=== PATIENT | male | born 1980 | race Caucasian/White ===

== ENCOUNTER 2017-11-02 00:47 | Inpatient (IN) | payer MEDICAID ==
[~2017-11-02] VITALS: Ht 180.3 cm; Wt 64.9 kg
[2017-11-02 02:20] LABS: BASOPHILS % (AUTO) 0.8 % (0.0-2.0); HEMATOCRIT 41.8 % (41-53); HEMOGLOBIN 14.7 g/dL (13.5-17.5); LYMPHOCYTES % (AUTO) 27.4 % (22.0-44.0); MEAN CORPUSCULAR HEMOGLOBIN 32.1 pg (26.0-34.0); MEAN CORPUSCULAR HGB CONC 35.1 G/dL (31.0-37.0); MEAN CORPUSCULAR VOLUME 92 fL (80-100); MONOCYTES # (AUTO) 0.6 K/uL (0.1-1.0); MONOCYTES % (AUTO) 8.6 % (2.0-9.0); NEUTROPHILS # (AUTO) 4.4 K/uL (1.8-7.7); NEUTROPHILS % (AUTO) 61.2 % (40.0-70.0); PLATELET COUNT (AUTO) 268 K/uL (150-450); RED BLOOD CELL COUNT(AUTO) 4.56 MIL/uL (4.50-5.90); RED CELL DISTRIBUTION WIDTH 13.1 % (11.5-14.5)
[2017-11-02 02:21] LABS: ANION GAP 6 mmol/L (8-16); CALCIUM, TOTAL 9.1 mg/dL (8.8-10.5); CARBON DIOXIDE 30 mmol/L (22-29); CHLORIDE 103 mmol/L (98-107); CREATININE 1.04 mg/dL (0.60-1.30); GLOMERULAR FILTR. RATE CALC > 60 mL/min (>60); GLUCOSE,RANDOM 147 mg/dL (70-110); POTASSIUM 3.6 mmol/L (3.5-5.1); SODIUM SERUM 139 mmol/L (136-145); UREA NITROGEN, BLOOD 14 mg/dL (7-18)
[2017-11-02 02:26] LABS: ALANINE AMINOTRANSFERASE 43 U/L (12-78); ALBUMIN 3.8 g/dL (3.4-5.0); ALKALINE PHOSPHATASE 116 U/L (46-116); ASPARTATE AMINOTRANSFERASE 35 U/L (15-37); BILIRUBIN,TOTAL 0.5 mg/dL (0.1-1.0); TOTAL PROTEIN, SERUM 6.9 g/dL (6.4-8.2)
[2017-11-02 03:28] LABS: AMPHET/METH SCREEN,URINE POSITIVE (NEGATIVE); BARBITURATE SCREEN, URINE NEGATIVE (NEGATIVE); BENZODIAZEPINES SCREEN,URINE NEGATIVE (NEGATIVE); CANNABINOID SCREEN,URINE POSITIVE (NEGATIVE); COCAINE SCREEN,URINE NEGATIVE (NEGATIVE); METHADONE SCREEN, URINE NEGATIVE (NEGATIVE); OPIATE SCREEN,URINE NEGATIVE (NEGATIVE)
[2017-11-02 03:29] LABS: PHENCYCLIDINE SCREEN,URINE NEGATIVE (NEGATIVE)
[2017-11-02] MEDS ORDERED: ZOLPIDEM TARTRATE 10 MG TABLET PO PRN (05:30)
[2017-11-02] MEDS ORDERED: HALOPERIDOL 5 MG TABLET PO PRN (05:30)
[2017-11-02 18:08] VITALS: BP 108/67
[2017-11-03 06:52] VITALS: BP 118/69
[2017-11-03 08:10] VITALS: BP 111/62
[2017-11-03] MEDS: NICOTINE 14 MG/24 HOUR PATCH TD SCH (08:37)
[2017-11-03] MEDS ORDERED: ACETAMINOPHEN 325 MG TABLET PO PRN (10:45)
[2017-11-03] MEDS ORDERED: MAG HYDROX/AL HYDROX/SIMETH ES 30 ML SUSPENSION UDCUP PO PRN (10:45)
[2017-11-03] MEDS ORDERED: ALBUTEROL SULFATE HFA 90 MCG/PUFF 8 GM INHALER IH PRN (10:45)
[2017-11-03] MEDS ORDERED: MAGNESIUM HYDROXIDE SUSPENSION 30 ML UDCUP PO PRN (10:45)
[2017-11-03] MEDS ORDERED: ONDANSETRON HCL 4 MG TABLET PO PRN (10:45)
[2017-11-03] MEDS ORDERED: BENZOCAINE/MENTHOL LOZENGE MM PRN (10:45)
[2017-11-03] MEDS ORDERED: BACITRACIN 28.4 GM OINTMENT TP PRN (10:45)
[2017-11-03] MEDS ORDERED: CloNIDine HCL 0.1 MG TABLET PO PRN (10:45)
[2017-11-03] MEDS ORDERED: LOPERAMIDE HCL 2 MG CAPSULE PO PRN (10:45)
[2017-11-03] MEDS ORDERED: PETROLATUM,WHITE 71 GM JELLY TP PRN (10:45)
[2017-11-03 16:35] VITALS: BP 100/61
[2017-11-03] MEDS: LORazepam 2 MG TABLET PO PRN (18:49)
[2017-11-03] MEDS: IBUPROFEN 600 MG TABLET PO PRN (18:50)
[2017-11-04 08:31] VITALS: BP 112/73
[2017-11-04 08:38] LABS: CHOL/HDL RATIO 2.4 (4.2-7.3); THYROID STIMULATING HORMONE 2.64 uIU/mL (0.36-3.74)
[2017-11-04 08:41] LABS: HEMOGLOBIN A1C 5.4 % (4.5-6.2)
[2017-11-04] MEDS: NICOTINE 14 MG/24 HOUR PATCH TD SCH (09:00)
[2017-11-04 14:39] VITALS: BP 116/60
[2017-11-04] MEDS: IBUPROFEN 600 MG TABLET PO PRN (14:42)
[2017-11-04 16:58] VITALS: BP 110/71
[2017-11-04] MEDS: LORazepam 2 MG TABLET PO PRN (18:06)
[2017-11-04] MEDS: OLANZapine 10 MG TABLET PO SCH (20:50)
[2017-11-05 06:44] VITALS: BP 111/66
[2017-11-05 08:30] VITALS: BP 114/71
[2017-11-05] MEDS: NICOTINE 14 MG/24 HOUR PATCH TD SCH (09:00)
[2017-11-05 16:30] VITALS: BP 134/61
[2017-11-05] MEDS: OLANZapine 10 MG TABLET PO SCH (20:06)
[2017-11-05] MEDS ORDERED: BACITRACIN 28.4 GM OINTMENT TP PRN (21:45)
[2017-11-05] MEDS ORDERED: ALBUTEROL SULFATE HFA 90 MCG/PUFF 8 GM INHALER IH PRN (21:45)
[2017-11-05] MEDS ORDERED: MAG HYDROX/AL HYDROX/SIMETH ES 30 ML SUSPENSION UDCUP PO PRN (21:45)
[2017-11-05] MEDS ORDERED: LOPERAMIDE HCL 2 MG CAPSULE PO PRN (21:45)
[2017-11-05] MEDS ORDERED: ACETAMINOPHEN 325 MG TABLET PO PRN (21:45)
[2017-11-05] MEDS ORDERED: BENZOCAINE/MENTHOL LOZENGE MM PRN (21:45)
[2017-11-05] MEDS ORDERED: PETROLATUM,WHITE 71 GM JELLY TP PRN (21:45)
[2017-11-05] MEDS ORDERED: ONDANSETRON HCL 4 MG TABLET PO PRN (21:45)
[2017-11-05] MEDS ORDERED: IBUPROFEN 600 MG TABLET PO PRN (21:45)
[2017-11-05] MEDS ORDERED: CloNIDine HCL 0.1 MG TABLET PO PRN (21:45)
[2017-11-05] MEDS ORDERED: MAGNESIUM HYDROXIDE SUSPENSION 30 ML UDCUP PO PRN (21:45)
[2017-11-06 08:16] VITALS: BP 120/68
[2017-11-06] MEDS: DOCUSATE SODIUM 100 MG CAPSULE PO SCH (08:56)
[2017-11-06] MEDS: CHOLECALCIFEROL (VIT D3) 1,000 UNITS TABLET PO SCH (08:56)
[2017-11-06] MEDS: OMEPRAZOLE 20 MG CAPSULE PO SCH (08:56)
[2017-11-06] MEDS: NICOTINE 14 MG/24 HOUR PATCH TD SCH (08:58)
[2017-11-06] MEDS: LORazepam 2 MG TABLET PO PRN (16:43)
[2017-11-06 16:57] VITALS: BP 122/72
[2017-11-06] MEDS: OLANZapine 10 MG TABLET PO SCH (20:14)
[2017-11-07 06:38] VITALS: BP 112/68
[2017-11-07] MEDS: DOCUSATE SODIUM 100 MG CAPSULE PO SCH (08:26)
[2017-11-07] MEDS: LORazepam 2 MG TABLET PO PRN (08:26)
[2017-11-07] MEDS: NICOTINE 14 MG/24 HOUR PATCH TD SCH (08:26)
[2017-11-07] MEDS: OMEPRAZOLE 20 MG CAPSULE PO SCH (08:26)
[2017-11-07] MEDS: CHOLECALCIFEROL (VIT D3) 1,000 UNITS TABLET PO SCH (08:26)
[2017-11-07 08:34] VITALS: BP 116/72
[2017-11-07 16:33] VITALS: BP 123/74
[2017-11-07] MEDS: OLANZapine 10 MG TABLET PO SCH (20:10)
[2017-11-08 01:28] VITALS: BP 107/64
[2017-11-08] MEDS: OMEPRAZOLE 20 MG CAPSULE PO SCH (08:39)
[2017-11-08] MEDS: CHOLECALCIFEROL (VIT D3) 1,000 UNITS TABLET PO SCH (08:39)
[2017-11-08] MEDS: DOCUSATE SODIUM 100 MG CAPSULE PO SCH (08:39)
[2017-11-08] MEDS: NICOTINE 14 MG/24 HOUR PATCH TD SCH (08:39)
[2017-11-08] MEDS: LORazepam 2 MG TABLET PO PRN (08:46)
[2017-11-08 08:50] VITALS: BP 106/77
[2017-11-08] MEDS ORDERED: OLAN10TA3 PO (09:16)
[2017-11-08] MEDS ORDERED: OMEP20 PO (09:17)
[2017-11-08] MEDS ORDERED: VITAD1000 PO (09:17)
[2017-11-08] MEDS ORDERED: DSS100 PO (09:17)
== END 2017-11-08 10:30 | disposition home or self-care (01) | DRG 750 ==
LOC: EMS 00:49 → B3A 16:51 → B2S 11-06 12:00
PROVIDERS: ADMIT Psychiatry & Neurology Psychiatry; ATTEND Psychiatry & Neurology Psychiatry
DX: F20.9 Schizophrenia, unspecified (principal); F15.151 Other stimulant abuse with stimulant-induced psychotic disorder with hallucinations; E55.9 Vitamin D deficiency, unspecified; Z59.0 Homelessness; F41.9 Anxiety disorder, unspecified; G47.00 Insomnia, unspecified; F17.200 Nicotine dependence, unspecified, uncomplicated; F12.90 Cannabis use, unspecified, uncomplicated; R73.9 Hyperglycemia, unspecified; Z71.51 Drug abuse counseling and surveillance of drug abuser; Z71.6 Tobacco abuse counseling; Z71.41 Alcohol abuse counseling and surveillance of alcoholic; Z72.89 Other problems related to lifestyle; Z56.0 Unemployment, unspecified
CPT/HCPCS: 82306; 83036; 84443; 99285; G0480

== ENCOUNTER 2019-03-30 02:14 | Inpatient (IN) | payer MEDICAID ==
[~2019-03-30] VITALS: Ht 180.3 cm; Wt 67.1 kg
[~2019-03-30 02:14] MED LIST: CHOL100018 PO; DSS100 PO; OLAN10TA3 PO; OMEP20 PO
[2019-03-30] MEDS ORDERED: QUEtiapine FUMARATE 100 MG TABLET PO PRN (04:45)
[2019-03-30] MEDS ORDERED: ZOLPIDEM TARTRATE 10 MG TABLET PO PRN (04:45)
[2019-03-30 05:55] VITALS: BP 118/70
[2019-03-30 08:34] VITALS: BP 109/67
[2019-03-30] MEDS: LORazepam 2 MG TABLET PO PRN ×2 (11:30→17:35)
[2019-03-30] MEDS ORDERED: MAGNESIUM HYDROXIDE SUSPENSION 30 ML UDCUP PO PRN (11:45)
[2019-03-30] MEDS ORDERED: LOPERAMIDE HCL 2 MG CAPSULE PO PRN (11:45)
[2019-03-30] MEDS ORDERED: OMEPRAZOLE 20 MG CAPSULE PO PRN (11:45)
[2019-03-30] MEDS ORDERED: DOCUSATE SODIUM 100 MG CAPSULE PO PRN (11:45)
[2019-03-30] MEDS ORDERED: ACETAMINOPHEN 325 MG TABLET PO PRN (11:45)
[2019-03-30] MEDS ORDERED: MAG HYDROX/AL HYDROX/SIMETH ES 30 ML SUSPENSION UDCUP PO PRN (11:45)
[2019-03-30] MEDS ORDERED: ONDANSETRON HCL 4 MG TABLET PO PRN (11:45)
[2019-03-30] MEDS ORDERED: IBUPROFEN 600 MG TABLET PO PRN (11:45)
[2019-03-30] MEDS ORDERED: BACITRACIN 28.4 GM OINTMENT TP PRN (11:45)
[2019-03-30] MEDS ORDERED: PETROLATUM,WHITE 28 GM JELLY TP PRN (11:45)
[2019-03-30] MEDS ORDERED: ALBUTEROL SULFATE HFA 90 MCG/PUFF 8 GM INHALER IH PRN (11:45)
[2019-03-30] MEDS ORDERED: CloNIDine HCL 0.1 MG TABLET PO PRN (11:45)
[2019-03-30] MEDS ORDERED: BENZOCAINE/MENTHOL LOZENGE MM PRN (11:45)
[2019-03-30 16:09] VITALS: BP 116/68
[2019-03-30] MEDS: OLANZapine 10 MG TABLET PO SCH (20:45)
[2019-03-31 00:15] VITALS: BP 125/80
[2019-03-31] MEDS: CHOLECALCIFEROL (VIT D3) 1,000 UNITS TABLET PO SCH (07:56)
[2019-03-31 08:19] VITALS: BP 112/71
[2019-03-31 16:21] VITALS: BP 112/68
[2019-03-31] MEDS: OLANZapine 10 MG TABLET PO SCH (20:36)
[2019-04-01 00:59] VITALS: BP 107/64
[2019-04-01 07:48] LABS: BASOPHILS % (AUTO) 0.6 % (0.0-2.0); HEMATOCRIT 43.5 % (41-53); HEMOGLOBIN 14.4 g/dL (13.5-17.5); LYMPHOCYTES # (AUTO) 1.3 K/uL (1.0-4.8); LYMPHOCYTES % (AUTO) 34.4 % (22.0-44.0); MEAN CORPUSCULAR HEMOGLOBIN 31.9 pg (26.0-34.0); MEAN CORPUSCULAR HGB CONC 33.1 G/dL (31.0-37.0); MEAN CORPUSCULAR VOLUME 96 fL (80-100); MONOCYTES # (AUTO) 0.4 K/uL (0.1-1.0); MONOCYTES % (AUTO) 11.2 % (2.0-9.0); NEUTROPHILS # (AUTO) 1.8 K/uL (1.8-7.7); NEUTROPHILS % (AUTO) 46.8 % (40.0-70.0); PLATELET COUNT (AUTO) 213 K/uL (150-450); RED BLOOD CELL COUNT(AUTO) 4.52 MIL/uL (4.50-5.90); RED CELL DISTRIBUTION WIDTH 13.6 % (11.5-14.5)
[2019-04-01 08:20] LABS: ALANINE AMINOTRANSFERASE 31 U/L (12-78); ALBUMIN 3.7 g/dL (3.4-5.0); ALKALINE PHOSPHATASE 88 U/L (46-116); ANION GAP 6 mmol/L (8-16); ASPARTATE AMINOTRANSFERASE 14 U/L (15-37); BILIRUBIN,TOTAL 0.3 mg/dL (0.1-1.0); CALCIUM, TOTAL 9.2 mg/dL (8.8-10.5); CARBON DIOXIDE 29 mmol/L (22-29); CHLORIDE 105 mmol/L (98-107); CHOL/HDL RATIO 3.2 (4.2-7.3); CHOLESTEROL 178 mg/dL (131-200); CREATININE 0.81 mg/dL (0.60-1.30); GLOMERULAR FILTR. RATE CALC > 60 mL/min (>60); GLUCOSE,RANDOM 87 mg/dL (70-110); HDL CHOLESTEROL 55 mg/dL (40-60); LDL CHOL (CALC.) 98 mg/dL (0-130); POTASSIUM 4.4 mmol/L (3.5-5.1); SODIUM SERUM 140 mmol/L (136-145); THYROID STIMULATING HORMONE 0.79 uIU/mL (0.36-3.74); TOTAL PROTEIN, SERUM 6.3 g/dL (6.4-8.2); TRIGLYCERIDES 124 mg/dL (15-150); UREA NITROGEN, BLOOD 11 mg/dL (7-18)
[2019-04-01] MEDS: CHOLECALCIFEROL (VIT D3) 1,000 UNITS TABLET PO SCH (08:32)
[2019-04-01 08:49] VITALS: BP 105/71
[2019-04-01 16:10] VITALS: BP 121/76
[2019-04-01] MEDS: OLANZapine 10 MG TABLET PO SCH (20:07)
[2019-04-02 00:20] VITALS: BP 128/71
[2019-04-02 08:05] VITALS: BP 113/72
[2019-04-02] MEDS: CHOLECALCIFEROL (VIT D3) 1,000 UNITS TABLET PO SCH (08:13)
[2019-04-02] MEDS ORDERED: FLUoxetine HCL 20 MG CAPSULE PO SCH (09:00)
[2019-04-02] MEDS ORDERED: PROZ10 PO (10:39)
== END 2019-04-02 11:45 | disposition home or self-care (01) | DRG 750 ==
LOC: UNDOADMIN 04:47 → B2S 04:47
PROVIDERS: ADMIT Psychiatry & Neurology Psychiatry; ATTEND Psychiatry & Neurology Psychiatry
DX: F25.1 Schizoaffective disorder, depressive type (principal); R45.851 Suicidal ideations; Z59.0 Homelessness; F12.90 Cannabis use, unspecified, uncomplicated; F15.10 Other stimulant abuse, uncomplicated; F17.200 Nicotine dependence, unspecified, uncomplicated; F41.9 Anxiety disorder, unspecified; G47.00 Insomnia, unspecified; Z71.51 Drug abuse counseling and surveillance of drug abuser
CPT/HCPCS: 84439; 84443; 87081

== ENCOUNTER 2021-04-02 00:11 | Inpatient (IN) | payer MEDICAID, OTHER ==
[~2021-04-02] VITALS: Ht 180.3 cm; Wt 70.8 kg
[~2021-04-02 00:11] MED LIST changes: -DSS100 PO; +FLUO10CA24 PO; -OLAN10TA3 PO; +OLAN10TA74 PO; -OMEP20 PO
[2021-04-02] MEDS ORDERED: OLAN5TAB52 PO (00:20)
[2021-04-02] MEDS ORDERED: ONDANSETRON HCL 4 MG/2 ML VIAL IVP PRN (02:00)
[2021-04-02 02:10] LABS: BASOPHILS % (AUTO) 1.3 % (0.0-2.0); EOSINOPHILS % (AUTO) 0.4 % (1.0-6.0); HEMATOCRIT 42.6 % (41-53); HEMOGLOBIN 14.2 g/dL (13.5-17.5); LYMPHOCYTES # (AUTO) 0.8 K/uL (1.0-4.8); LYMPHOCYTES % (AUTO) 19.9 % (22.0-44.0); MEAN CORPUSCULAR HEMOGLOBIN 31.2 pg (26.0-34.0); MEAN CORPUSCULAR HGB CONC 33.4 G/dL (31.0-37.0); MEAN CORPUSCULAR VOLUME 93 fL (80-100); MONOCYTES # (AUTO) 0.6 K/uL (0.1-1.0); MONOCYTES % (AUTO) 13.2 % (2.0-9.0); NEUTROPHILS # (AUTO) 2.7 K/uL (1.8-7.7); NEUTROPHILS % (AUTO) 65.2 % (40.0-70.0); PLATELET COUNT (AUTO) 159 K/uL (150-450); RED BLOOD CELL COUNT(AUTO) 4.57 MIL/uL (4.50-5.90); RED CELL DISTRIBUTION WIDTH 13.5 % (11.5-14.5)
[2021-04-02 02:39] LABS: C-REACTIVE PROTEIN QUANT 1.29 mg/dL (0.00-0.30); FERRITIN 173 ng/mL (26-388); LACTATE DEHYDROGENASE 309 U/L (85-227)
[2021-04-02 02:46] LABS: ANION GAP 8 mmol/L (8-16); CALCIUM, TOTAL 8.9 mg/dL (8.8-10.5); CARBON DIOXIDE 29 mmol/L (22-29); CHLORIDE 101 mmol/L (98-107); CREATININE 0.93 mg/dL (0.60-1.30); GLOMERULAR FILTR. RATE CALC > 60 mL/min (>60); GLUCOSE,RANDOM 98 mg/dL (70-110); POTASSIUM 4.1 mmol/L (3.5-5.1); SODIUM SERUM 138 mmol/L (136-145); UREA NITROGEN, BLOOD 12 mg/dL (7-18)
[2021-04-02 03:04] LABS: BILIRUBIN,TOTAL 0.5 mg/dL (0.1-1.0)
[2021-04-02 03:05] LABS: ALANINE AMINOTRANSFERASE 57 U/L (12-78); ALKALINE PHOSPHATASE 81 U/L (46-116); ASPARTATE AMINOTRANSFERASE 55 U/L (15-37); TOTAL PROTEIN, SERUM 7.7 g/dL (6.4-8.2)
[2021-04-02 05:17] VITALS: BP 121/73
[2021-04-02] MEDS: ACETAMINOPHEN 325 MG TABLET PO PRN (05:27)
[2021-04-02 07:15] VITALS: BP 105/68
[2021-04-02] MEDS ORDERED: HEPARIN SODIUM 25000 UNITS/D5W 250 ML IV PRN (08:00)
[2021-04-02] MEDS ORDERED: HEPARIN SODIUM,PORCINE 5,000 UNITS/ML VIAL IVP PRN ×2 (08:00)
[2021-04-02 10:25] LABS: BASOPHILS % (AUTO) 0.4 % (0.0-2.0); EOSINOPHILS % (AUTO) 0.4 % (1.0-6.0); HEMATOCRIT 43.5 % (41-53); HEMOGLOBIN 14.5 g/dL (13.5-17.5); LYMPHOCYTES # (AUTO) 0.9 K/uL (1.0-4.8); MEAN CORPUSCULAR HGB CONC 33.3 G/dL (31.0-37.0); MEAN CORPUSCULAR VOLUME 93 fL (80-100); MONOCYTES # (AUTO) 0.5 K/uL (0.1-1.0); MONOCYTES % (AUTO) 16.4 % (2.0-9.0); NEUTROPHILS # (AUTO) 1.6 K/uL (1.8-7.7); NEUTROPHILS % (AUTO) 53.8 % (40.0-70.0); PLATELET COUNT (AUTO) 157 K/uL (150-450); RED BLOOD CELL COUNT(AUTO) 4.68 MIL/uL (4.50-5.90); RED CELL DISTRIBUTION WIDTH 13.7 % (11.5-14.5)
[2021-04-02 10:38] LABS: PROTHROMBIN TIME 10.6 SEC (9.4-11.6)
[2021-04-02] MEDS ORDERED: BENZONATATE 100 MG CAPSULE PO PRN (12:00)
[2021-04-02] MEDS: ENOXAPARIN SODIUM 40 MG/0.4 ML PF SYRINGE SQ SCH ×2 (12:15→20:04)
[2021-04-02 15:33] VITALS: BP 112/72
[2021-04-02] MEDS ORDERED: HydrOXYzine PAMOATE 25 MG CAPSULE PO PRN (18:00)
[2021-04-02 19:30] VITALS: BP 121/62
[2021-04-02] MEDS: OLANZapine 10 MG RAPDIS TABLET PO SCH (20:03)
[2021-04-02] MEDS ORDERED: LORazepam 2 MG TABLET PO PRN (20:45)
[2021-04-02] MEDS ORDERED: HALOPERIDOL 5 MG TABLET PO PRN (20:45)
[2021-04-02] MEDS: ZOLPIDEM TARTRATE 10 MG TABLET PO PRN (22:47)
[2021-04-03] VITALS: BP 100/59
[2021-04-03 05:45] VITALS: BP 108/66
[2021-04-03] MEDS: ACETAMINOPHEN 325 MG TABLET PO PRN ×2 (06:05→17:09)
[2021-04-03 07:45] LABS: D-DIMER 1.64 mg/L FEU (0.00-0.50)
[2021-04-03 08:02] LABS: C-REACTIVE PROTEIN QUANT 2.07 mg/dL (0.00-0.30)
[2021-04-03 08:48] VITALS: BP 125/58
[2021-04-03] MEDS: ENOXAPARIN SODIUM 40 MG/0.4 ML PF SYRINGE SQ SCH ×2 (09:01→19:45)
[2021-04-03] MEDS: SERTRALINE HCL 50 MG TABLET PO SCH (09:02)
[2021-04-03 16:57] VITALS: BP 119/80
[2021-04-03] MEDS: ZOLPIDEM TARTRATE 10 MG TABLET PO PRN (19:45)
[2021-04-03] MEDS: OLANZapine 10 MG RAPDIS TABLET PO SCH (19:45)
[2021-04-03 21:00] VITALS: BP 115/76
[2021-04-03 22:01] LABS: APPEARANCE,URINE CLEAR (CLEAR); BILIRUBIN,URINE NEGATIVE (NEGATIVE); GLUCOSE, URINE (UA) NEGATIVE (NEGATIVE); KETONES,URINE NEGATIVE (NEGATIVE); LEUKOCYTE ESTERASE ,URINE NEGATIVE (NEGATIVE); NITRATE,URINE NEGATIVE (NEGATIVE); OCCULT BLOOD,URINE NEGATIVE (NEGATIVE); PH,URINE 6.5 (5.0-8.0); PROTEIN,URINE NEGATIVE (NEGATIVE); UROBILINOGEN,URINE 0.2 mg/dL (<=1.0)
[2021-04-04 04:05] VITALS: BP 117/70
[2021-04-04] MEDS: ACETAMINOPHEN 325 MG TABLET PO PRN ×3 (05:34→20:41)
[2021-04-04 07:03] LABS: BASOPHILS % (AUTO) 0.3 % (0.0-2.0); EOSINOPHILS % (AUTO) 0.3 % (1.0-6.0); HEMATOCRIT 42.9 % (41-53); HEMOGLOBIN 14.4 g/dL (13.5-17.5); LYMPHOCYTES # (AUTO) 0.9 K/uL (1.0-4.8); LYMPHOCYTES % (AUTO) 32.7 % (22.0-44.0); MEAN CORPUSCULAR HEMOGLOBIN 31.2 pg (26.0-34.0); MEAN CORPUSCULAR HGB CONC 33.5 G/dL (31.0-37.0); MEAN CORPUSCULAR VOLUME 93 fL (80-100); MONOCYTES # (AUTO) 0.3 K/uL (0.1-1.0); MONOCYTES % (AUTO) 11.8 % (2.0-9.0); NEUTROPHILS # (AUTO) 1.6 K/uL (1.8-7.7); NEUTROPHILS % (AUTO) 54.9 % (40.0-70.0); PLATELET COUNT (AUTO) 137 K/uL (150-450); RED CELL DISTRIBUTION WIDTH 13.3 % (11.5-14.5)
[2021-04-04 07:19] LABS: D-DIMER 1.99 mg/L FEU (0.00-0.50)
[2021-04-04 07:34] VITALS: BP 118/65
[2021-04-04 08:11] LABS: ALANINE AMINOTRANSFERASE 46 U/L (12-78); ALBUMIN 3.6 g/dL (3.4-5.0); ALKALINE PHOSPHATASE 79 U/L (46-116); ANION GAP 10 mmol/L (8-16); ASPARTATE AMINOTRANSFERASE 27 U/L (15-37); BILIRUBIN,TOTAL 0.3 mg/dL (0.1-1.0); C-REACTIVE PROTEIN QUANT 1.58 mg/dL (0.00-0.30); CALCIUM, TOTAL 8.7 mg/dL (8.8-10.5); CARBON DIOXIDE 27 mmol/L (22-29); CHLORIDE 101 mmol/L (98-107); CREATININE 0.99 mg/dL (0.60-1.30); FERRITIN 232 ng/mL (26-388); GLOMERULAR FILTR. RATE CALC > 60 mL/min (>60); GLUCOSE,RANDOM 152 mg/dL (70-110); POTASSIUM 4.5 mmol/L (3.5-5.1); SODIUM SERUM 138 mmol/L (136-145); TOTAL PROTEIN, SERUM 7.4 g/dL (6.4-8.2); UREA NITROGEN, BLOOD 12 mg/dL (7-18)
[2021-04-04] MEDS: SERTRALINE HCL 50 MG TABLET PO SCH (09:00)
[2021-04-04] MEDS: ENOXAPARIN SODIUM 40 MG/0.4 ML PF SYRINGE SQ SCH ×2 (09:00→19:57)
[2021-04-04 19:39] VITALS: BP 107/55
[2021-04-04] MEDS: OLANZapine 10 MG RAPDIS TABLET PO SCH (19:57)
[2021-04-05 03:55] VITALS: BP 105/56
[2021-04-05] MEDS: ACETAMINOPHEN 325 MG TABLET PO PRN ×3 (04:14→19:56)
[2021-04-05 07:06] LABS: BASOPHILS % (AUTO) 0.4 % (0.0-2.0); EOSINOPHILS % (AUTO) 0.7 % (1.0-6.0); HEMOGLOBIN 15.2 g/dL (13.5-17.5); LYMPHOCYTES # (AUTO) 0.9 K/uL (1.0-4.8); LYMPHOCYTES % (AUTO) 30.3 % (22.0-44.0); MEAN CORPUSCULAR HEMOGLOBIN 31.2 pg (26.0-34.0); MEAN CORPUSCULAR HGB CONC 33.8 G/dL (31.0-37.0); MEAN CORPUSCULAR VOLUME 92 fL (80-100); MONOCYTES # (AUTO) 0.3 K/uL (0.1-1.0); MONOCYTES % (AUTO) 11.3 % (2.0-9.0); NEUTROPHILS # (AUTO) 1.7 K/uL (1.8-7.7); NEUTROPHILS % (AUTO) 57.3 % (40.0-70.0); PLATELET COUNT (AUTO) 152 K/uL (150-450); RED BLOOD CELL COUNT(AUTO) 4.87 MIL/uL (4.50-5.90); RED CELL DISTRIBUTION WIDTH 13.3 % (11.5-14.5)
[2021-04-05 07:37] LABS: ALANINE AMINOTRANSFERASE 43 U/L (12-78); ALBUMIN 3.6 g/dL (3.4-5.0); ALKALINE PHOSPHATASE 82 U/L (46-116); ANION GAP 6 mmol/L (8-16); ASPARTATE AMINOTRANSFERASE 30 U/L (15-37); BILIRUBIN,TOTAL 0.2 mg/dL (0.1-1.0); C-REACTIVE PROTEIN QUANT 0.92 mg/dL (0.00-0.30); CALCIUM, TOTAL 8.9 mg/dL (8.8-10.5); CARBON DIOXIDE 30 mmol/L (22-29); CHLORIDE 103 mmol/L (98-107); CREATININE 0.81 mg/dL (0.60-1.30); FERRITIN 261 ng/mL (26-388); GLOMERULAR FILTR. RATE CALC > 60 mL/min (>60); GLUCOSE,RANDOM 107 mg/dL (70-110); POTASSIUM 4.4 mmol/L (3.5-5.1); SODIUM SERUM 139 mmol/L (136-145); TOTAL PROTEIN, SERUM 7.5 g/dL (6.4-8.2); UREA NITROGEN, BLOOD 10 mg/dL (7-18)
[2021-04-05 07:41] VITALS: BP 96/59
[2021-04-05 08:22] LABS: D-DIMER 1.98 mg/L FEU (0.00-0.50)
[2021-04-05] MEDS: SERTRALINE HCL 50 MG TABLET PO SCH (08:42)
[2021-04-05] MEDS: ENOXAPARIN SODIUM 40 MG/0.4 ML PF SYRINGE SQ SCH ×2 (08:42→19:56)
[2021-04-05 15:24] VITALS: BP 106/58
[2021-04-05 17:04] VITALS: BP 119/65
[2021-04-05] MEDS: OLANZapine 10 MG RAPDIS TABLET PO SCH (19:56)
[2021-04-05 20:15] VITALS: BP 118/65
[2021-04-06] MEDS: ACETAMINOPHEN 325 MG TABLET PO PRN ×2 (03:41→16:53)
[2021-04-06 03:42] VITALS: BP 107/52
[2021-04-06 06:35] LABS: BASOPHILS % (AUTO) 0.3 % (0.0-2.0); EOSINOPHILS % (AUTO) 0.9 % (1.0-6.0); HEMATOCRIT 44.5 % (41-53); LYMPHOCYTES # (AUTO) 1.2 K/uL (1.0-4.8); MEAN CORPUSCULAR HEMOGLOBIN 31.1 pg (26.0-34.0); MEAN CORPUSCULAR HGB CONC 33.7 G/dL (31.0-37.0); MEAN CORPUSCULAR VOLUME 92 fL (80-100); MONOCYTES # (AUTO) 0.4 K/uL (0.1-1.0); MONOCYTES % (AUTO) 13.6 % (2.0-9.0); NEUTROPHILS # (AUTO) 1.7 K/uL (1.8-7.7); NEUTROPHILS % (AUTO) 50.2 % (40.0-70.0); PLATELET COUNT (AUTO) 172 K/uL (150-450); RED BLOOD CELL COUNT(AUTO) 4.83 MIL/uL (4.50-5.90); RED CELL DISTRIBUTION WIDTH 13.3 % (11.5-14.5)
[2021-04-06 06:48] LABS: D-DIMER 1.88 mg/L FEU (0.00-0.50)
[2021-04-06 07:01] LABS: ALANINE AMINOTRANSFERASE 40 U/L (12-78); ALBUMIN 3.4 g/dL (3.4-5.0); ALKALINE PHOSPHATASE 81 U/L (46-116); ANION GAP 10 mmol/L (8-16); ASPARTATE AMINOTRANSFERASE 30 U/L (15-37); CALCIUM, TOTAL 8.8 mg/dL (8.8-10.5); CARBON DIOXIDE 28 mmol/L (22-29); CHLORIDE 102 mmol/L (98-107); CREATININE 0.79 mg/dL (0.60-1.30); FERRITIN 319 ng/mL (26-388); GLOMERULAR FILTR. RATE CALC > 60 mL/min (>60); GLUCOSE,RANDOM 96 mg/dL (70-110); POTASSIUM 4.2 mmol/L (3.5-5.1); SODIUM SERUM 140 mmol/L (136-145); TOTAL PROTEIN, SERUM 7.4 g/dL (6.4-8.2); UREA NITROGEN, BLOOD 10 mg/dL (7-18)
[2021-04-06 07:17] VITALS: BP 93/54
[2021-04-06 07:20] LABS: BILIRUBIN,TOTAL 0.2 mg/dL (0.1-1.0)
[2021-04-06] MEDS: ENOXAPARIN SODIUM 40 MG/0.4 ML PF SYRINGE SQ SCH ×2 (08:23→20:02)
[2021-04-06] MEDS: SERTRALINE HCL 50 MG TABLET PO SCH (08:24)
[2021-04-06 15:37] VITALS: BP 111/68
[2021-04-06 19:28] VITALS: BP 117/60
[2021-04-06] MEDS: ZOLPIDEM TARTRATE 10 MG TABLET PO PRN (20:02)
[2021-04-06] MEDS: OLANZapine 10 MG RAPDIS TABLET PO SCH (20:02)
[2021-04-07 04:04] VITALS: BP 106/61
[2021-04-07 08:19] VITALS: BP 100/60
[2021-04-07] MEDS: SERTRALINE HCL 50 MG TABLET PO SCH (08:34)
[2021-04-07] MEDS: ENOXAPARIN SODIUM 40 MG/0.4 ML PF SYRINGE SQ SCH ×2 (08:34→20:00)
[2021-04-07 15:44] VITALS: BP 105/60
[2021-04-07 19:15] VITALS: BP 117/67
[2021-04-07] MEDS: ZOLPIDEM TARTRATE 10 MG TABLET PO PRN (20:00)
[2021-04-07] MEDS: OLANZapine 10 MG RAPDIS TABLET PO SCH (20:00)
[2021-04-08 04:16] VITALS: BP 115/68
[2021-04-08 08:22] VITALS: BP 98/58
[2021-04-08] MEDS: SERTRALINE HCL 50 MG TABLET PO SCH (09:26)
[2021-04-08] MEDS: ENOXAPARIN SODIUM 40 MG/0.4 ML PF SYRINGE SQ SCH (09:26)
[2021-04-08] MEDS ORDERED: SERT-158 PO (10:44)
== END 2021-04-08 11:48 | disposition home or self-care (01) | DRG 137 ==
LOC: EMS 00:13 → 6N 02:57
PROVIDERS: ADMIT Internal Medicine; ATTEND Internal Medicine
DX: U07.1 COVID-19 (principal); D68.59 Other primary thrombophilia; R45.851 Suicidal ideations; F20.0 Paranoid schizophrenia; R74.01 Elevation of levels of liver transaminase levels; D72.810 Lymphocytopenia; F32.9 Major depressive disorder, single episode, unspecified; F17.210 Nicotine dependence, cigarettes, uncomplicated; R79.89 Other specified abnormal findings of blood chemistry; R79.82 Elevated C-reactive protein (CRP); R74.02 Elevation of levels of lactic acid dehydrogenase [LDH]; Z59.0 Homelessness; Z79.899 Other long term (current) drug therapy
CPT/HCPCS: 71045; 80053; 81003; 82728; 83615; 84145; 85025; 85379; 85610; 85730; 86140; 87040; 87081; 99285; J1644; J1650; 36415-L1; 36415-TC; U0003